=== PATIENT | male | born 1985 | race Caucasian/White ===

== ENCOUNTER 2019-04-26 01:23 | Emergency (ER) | payer OTHER ==
[~2019-04-26] VITALS: Ht 170.2 cm; Wt 54.4 kg
[2019-04-26 01:24] VITALS: BP 150/93
--- NOTE | 2019-04-26 01:24 | NUR ---
PT PLACED IN BED 7.
[2019-04-26] MEDS ORDERED: IBUPROFEN 800 MG TAB PO ONE (01:30)
[2019-04-26] MEDS ORDERED: ALPRAZolam 0.5 MG TAB PO ONE (01:30)
--- NOTE | 2019-04-26 01:38 | NUR ---
EKG PERFORMED BY RN AT BEDSIDE.
[2019-04-26 02:45] VITALS: BP 130/46
--- NOTE | 2019-04-26 02:45 | NUR ---
Patient discharged with v/s stable. Written and verbal after care instructions given and explained. Pt accompanied by both parents.Patient verbalized understanding. Ambulatory with steady gait. All questions addressed prior to discharge. All belongings sent home with patient. Advised to follow up with PMD.
== END 2019-04-26 02:45 | disposition home or self-care (01) ==
LOC: MED 01:23
DX: M94.0 Chondrocostal junction syndrome [Tietze] (principal); F41.9 Anxiety disorder, unspecified; F10.129 Alcohol abuse with intoxication, unspecified; I10 Essential (primary) hypertension; F17.200 Nicotine dependence, unspecified, uncomplicated
CPT/HCPCS: 71045; 93005; 99283

== ENCOUNTER 2019-05-02 15:39 | Emergency (ER) | payer OTHER ==
[~2019-05-02] VITALS: Ht 170.2 cm; Wt 59.0 kg
[2019-05-02 15:40] VITALS: BP 139/106
--- NOTE | 2019-05-02 15:42 | NUR ---
Note undone in EDM - 05/02/19 at 1600 by [facility] PT BIB[facility]. C/O FELLING RACING HEART RATE. PT STATES OF DRINKING ALCOHOL SINCE LAST THREE DAYS. STATES OF HAVING SLIGHT NAUSEA. DENIES PAIN , VOMITING , DIARRHEA. LAST DRINKING YESTERDAY.PT AAOX4. ER TO [facility]ZARIO THE PT.
--- NOTE | 2019-05-02 15:42 | NUR ---
Patient BIBA BLS, transferred to bed 9. RN evaluating patient at bedside.
--- NOTE | 2019-05-02 15:42 | NUR ---
PT BIBA [facility] HOME.PT AAOX4. C/O FEELING RACING HEART RATE, ANXIETY.PT STATES OF DRINKING ALCOHOL SINCE LAST THREE DAYS.LAST DRINKING YESTERDAY. STATES OF HAVING SLIGHT NAUSEA TODAY. DENIES PAIN , VOMITING , DIARRHEA, SOB AND CHEST PAIN. 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 ER TO EVAL THE PT.
--- NOTE | 2019-05-02 15:49 | NUR ---
Dr. Castillo evaluating patient at bedside.
[2019-05-02] MEDS ORDERED: NACL 0.9% 1,000 ML IV ONE (15:50)
[2019-05-02 16:10] VITALS: BP 107/39
--- NOTE | 2019-05-02 16:10 | NUR ---
Patient discharged with v/s stable. Written and verbal after care instructions given and explained. Patient alert, oriented and verbalized understanding of instructions. Ambulatory with steady gait. All questions addressed prior to discharge. ID band removed. Patient advised to follow up with PMD. Rx of LIBRIUM given. Patient educated on indication of medication including possible reaction and side effects. Opportunity to ask questions provided and answered.
== END 2019-05-02 16:10 | disposition home or self-care (01) ==
LOC: MED 15:39
DX: F41.9 Anxiety disorder, unspecified (principal); R00.2 Palpitations; F10.20 Alcohol dependence, uncomplicated; I10 Essential (primary) hypertension; F17.200 Nicotine dependence, unspecified, uncomplicated; Z98.890 Other specified postprocedural states
CPT/HCPCS: 81002; 82948; 99283; 99284

== ENCOUNTER 2019-07-08 11:48 | Emergency (ER) | payer OTHER ==
[~2019-07-08] VITALS: Ht 167.6 cm; Wt 73.0 kg
[2019-07-08 12:06] VITALS: BP 135/82
--- NOTE | 2019-07-08 12:10 | NUR ---
Pt sent to ER lobby to wait for available bed.
--- NOTE | 2019-07-08 12:20 | NUR ---
Pt taken to bed 12.
--- NOTE | 2019-07-08 12:28 | NUR ---
C/O BURINGING URINATION SINCE THIS MORNING WITH WHITE DISCHARGE. PT DENIES UNPROTECTED SEX, ITCHING, OR LOWER BACK PAIN. PAIN 6/10 WITH URINATION. VSS. AA0X4. BED IS DOWN, LOCKED, BED RAIL X 1, ERMD TO SEE PT. HX HIGH CHOLESTEROL, ANXIETY, HTN
--- NOTE | 2019-07-08 13:09 | NUR ---
PT STATES THAT HE HAS TO LEAVE TO HEEL PADDER HIS KIDS AND CANNOT WAIT. DR. ROMO MADE AWARE AND PT ADVISED HE WOULD HAVE TO WAIT. PT STATES HE CANNOT WAIT AND HAS TO LEAVE. PATIENT LEFT WITHOUT BEING SEEN BY DR. ROMO. NO FURTHER CARE PROVIDED FOR PATIENT.
[2019-07-08 15:07] LABS: APPEARANCE,URINE CLEAR (CLEAR); BILIRUBIN,URINE NEGATIVE (NEGATIVE); BLOOD, URINE TRACE-I (NEGATIVE); COLOR,URINE YELLOW (YELLOW); LEUKOCYTE ESTERASE ,URINE NEGATIVE (NEGATIVE); NITRITE, URINE NEGATIVE (NEGATIVE); UGLUCOSE NEGATIVE (NEGATIVE)
== END 2019-07-08 13:09 | disposition left against medical advice (07) ==
LOC: MED 11:48
DX: R30.9 Painful micturition, unspecified (principal); Z53.21 Procedure and treatment not carried out due to patient leaving prior to being seen by health care provider
CPT/HCPCS: 81001; 87086; 99281; 99283

== ENCOUNTER 2019-07-09 20:40 | Emergency (ER) | payer OTHER ==
[~2019-07-09] VITALS: Ht 167.6 cm; Wt 74.8 kg
[2019-07-09 21:04] VITALS: BP 128/74
--- NOTE | 2019-07-09 21:06 | NUR ---
PT PROVIDED URINE SAMPLE AND TO LOBBY.
--- NOTE | 2019-07-09 22:42 | NUR ---
PT AMBULATED TO BED 10
[2019-07-09] MEDS ORDERED: AZITHROMYCIN 250 MG TAB PO ONE (22:50)
[2019-07-09] MEDS ORDERED: cefTRIAXone 250 MG in LIDOCAINE MPF 1% - 5 mL VIAL 0.9 ML IM ONE (22:50)
--- NOTE | 2019-07-09 23:00 | NUR ---
34 Y/O MALE PRESENTED TO ED, C/O OF BURNING SENSATION WHILE VOIDING 03/20. PT STATES SENSATION STARTED 2 DAYS AGO. PT DENIES ANY FREQUENCY. PT DENIES TAKING ANY MEDICATIONS FOR PAIN. PT VSS. ERMD AWARE. WILL CONTINUE TO MONITOR.
[2019-07-10 01:36] VITALS: BP 128/76
--- NOTE | 2019-07-10 01:36 | NUR ---
DPatient discharged with v/s stable. Written and verbal after care instructions given and explained. Patient alert, oriented and verbalized understanding of instructions. Ambulatory with steady gait. All questions addressed prior to discharge. ID band removed. Patient advised to follow up with PMD. Rx of CIPRO 500MG given. Patient educated on indication of medication including possible reaction and side effects. Opportunity to ask questions provided and answered.
== END 2019-07-10 01:36 | disposition home or self-care (01) ==
LOC: MED 20:40
DX: N39.0 Urinary tract infection, site not specified (principal); I10 Essential (primary) hypertension; F41.9 Anxiety disorder, unspecified
CPT/HCPCS: 36415; 81002; 87086; 96372; 99283; J0696; J2001

== ENCOUNTER 2020-05-21 02:33 | Emergency (ER) | payer OTHER ==
[~2020-05-21] VITALS: Ht 170.2 cm; Wt 72.6 kg
[2020-05-21 02:44] VITALS: BP 140/85
[2020-05-21 03:32] VITALS: BP 140/85
== END 2020-05-21 03:32 | disposition home or self-care (01) ==
LOC: MED 02:33
DX: F41.9 Anxiety disorder, unspecified (principal); F17.210 Nicotine dependence, cigarettes, uncomplicated; F12.10 Cannabis abuse, uncomplicated
CPT/HCPCS: 93005; 99283

== ENCOUNTER 2020-07-21 00:15 | Emergency (ER) | payer OTHER ==
[~2020-07-21] VITALS: Ht 170.2 cm; Wt 72.6 kg
[2020-07-21 00:19] VITALS: BP 139/80
--- NOTE | 2020-07-21 00:22 | NUR ---
w/c assist to bed 04.
--- NOTE | 2020-07-21 00:30 | NUR ---
35 Y/O male c/o rt flank pain s/p drinking vodka alot. pt stated pain started 2 hours ago in the rt lower back "my liver area" pt states a 9/10 sharp pain and "feels swollen". pt states he also has not eaten for the past 4 days days. pmhx: anxiety nka
[2020-07-21] MEDS ORDERED: NACL 0.9% 1,000 ML IV ONE (01:10)
[2020-07-21] MEDS ORDERED: KETOROLAC 30 MG/ML VIAL IVP ONE (01:10)
[2020-07-21 01:20] LABS: BASOPHILS # (AUTO) 0.1 K/uL (0.00-0.22); BASOPHILS % (AUTO) 1.2 % (0.0-2.0); EOSINOPHILS # (AUTO) 0.1 K/uL (0-0.4); EOSINOPHILS % (AUTO) 1.7 % (0.0-4.0); HEMATOCRIT 49.1 % (36-52); HEMOGLOBIN 16.8 g/dL (12.0-18.0); LYMPHOCYTES # (AUTO) 2.3 K/uL (2.0-11.5); LYMPHOCYTES % (AUTO) 36.5 % (20.5-51.1); MEAN CORPUSCULAR HEMOGLOBIN 31 pg (27-31); MEAN CORPUSCULAR HGB CONC 34 g/dL (33-37); MEAN CORPUSCULAR VOLUME 90.4 fL (80-94); MONOCYTES # (AUTO) 0.6 K/uL (0.8-1.0); MONOCYTES % (AUTO) 8.8 % (1.7-9.3); NEUTROPHILS # (AUTO) 3.3 K/uL (1.8-7.7); NEUTROPHILS % (AUTO) 51.8 % (42.2-75.2); PLATELET COUNT (AUTO) 258 K/uL (140-450); RED BLOOD CELL COUNT(AUTO) 5.44 MIL/uL (4.20-6.10); RED CELL DISTRIBUTION WIDTH 13.8 % (11.6-13.7); WHITE BLOOD COUNT (AUTO) 6.4 K/uL (4.8-10.8)
[2020-07-21 01:21] LABS: APPEARANCE,URINE CLEAR (CLEAR); BILIRUBIN,URINE NEGATIVE (NEGATIVE); BLOOD, URINE TRACE-I (NEGATIVE); COLOR,URINE YELLOW (YELLOW); LEUKOCYTE ESTERASE ,URINE 1+ (NEGATIVE); NITRITE, URINE NEGATIVE (NEGATIVE); PH,URINE 5.5 (5.0-9.0); UGLUCOSE NEGATIVE (NEGATIVE)
[2020-07-21 01:40] LABS: ALBUMIN 4.1 g/dL (3.4-5.0); ANION GAP 16.5 (8-16); CARBON DIOXIDE 25.4 mmol/L (21-32); POTASSIUM 3.9 mmol/L (3.5-5.1); TOTAL BILIRUBIN 0.3 mg/dL (0.0-1.0)
[2020-07-21 01:44] LABS: BARBITURATE, URINE NEGATIVE ng/ml (NEG <=200); BENZODIAZEPINE, URINE POSITIVE ng/mL (NEG <=200); CANNABINOID, URINE NEGATIVE ng/mL (NEG <=50); COCAINE, URINE NEGATIVE ng/mL (NEG <=300); OPIATE, URINE NEGATIVE ng/mL (NEG <=2000); PHENCYCLIDINE SCREEN,URINE NEGATIVE ng/mL (NEG <=25)
[2020-07-21 01:51] LABS: RBC,URINE 0-5 /HPF (0-5)
--- NOTE | 2020-07-21 01:55 | NUR ---
PT TAKEN TO CT VIA W/C
--- NOTE | 2020-07-21 02:13 | NUR ---
PT RETURNED FROM CT
--- NOTE | 2020-07-21 02:23 | NUR ---
PT AMBULATED TO RESTROOM STEADY GAIT
--- NOTE | 2020-07-21 02:25 | NUR ---
PT AMBULATED TO BACK TO BED 04 STEADY GAIT
[2020-07-21] MEDS ORDERED: CIPROFLOXACIN 250 MG TAB PO ONE (02:45)
[2020-07-21 03:23] VITALS: BP 139/80
--- NOTE | 2020-07-21 03:23 | NUR ---
Patient discharged with v/s stable. Written and verbal after care instructions given and explained. Patient alert, oriented and verbalized understanding of instructions. Ambulatory with steady gait. All questions addressed prior to discharge. ID band removed. IV Discontinued. Patient advised to follow up with PMD. Rx of TORADOL AND CIPROFLOXACIN given. Patient educated on indication of medication including possible reaction and side effects. Opportunity to ask questions provided and answered.
== END 2020-07-21 03:23 | disposition home or self-care (01) ==
LOC: MED 00:15
DX: N10 Acute pyelonephritis (principal); F43.20 Adjustment disorder, unspecified; I10 Essential (primary) hypertension; F17.210 Nicotine dependence, cigarettes, uncomplicated; Z71.6 Tobacco abuse counseling
CPT/HCPCS: 36415; 74176; 80053; 80305; 81001; 85025; 87086; 96361; 96374; 99284; G0482; J1885; J7030